=== PATIENT | male | born 1945 | race Caucasian/White ===

== ENCOUNTER 2020-02-21 08:14 | Emergency (ER) | payer OTHER ==
[~2020-02-21] VITALS: Ht 177.8 cm; Wt 84.0 kg
[2020-02-21] MEDS ORDERED: TETANUS,DIPTH,PERTUSS P/F (BOOSTRIX) 0.5 ML VIAL IM ONE (08:30)
--- NOTE | 2020-02-21 08:39 | ED Fall/Injury ---
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 He reports head and neck pain. C-collar placed on arrival to the ED. Source: patient Exam Limitations: no limitations History of Present Illness Date Seen by Provider: Feb 21, 2020 Time Seen by Provider: 08:32 Initial Comments 74-year-old male Trying to climb up a very high step into his semi missed it and fell backwards Hit the back of his head, was not knocked unconscious says he had a little bleeding from his head has head and neck pain also some left wrist pain and a scrape right elbow Location Injury Occurred: [facility] Allergies and Home Medications Allergies Coded Allergies: No Known Drug Allergies (Unverified , 02/21/20) Home Medications Hydrocodone/Acetaminophen 1 Each Tablet, 1 TAB PO Q4H Prescribed by: TYSON WILLIAMSON on 02/21/20 0943 Ibuprofen 800 Mg Tablet, 800 MG PO Q8H PRN for PAIN Prescribed by: TYSON WILLIAMSON on 02/21/20 0943 Patient Home Medication List Home Medication List Reviewed: Yes Review of Systems Review of Systems Constitutional: other (+ headache) Eyes: No Symptoms Reported Ears, Nose, Mouth, Throat: no symptoms reported Respiratory: no symptoms reported Cardiovascular: no symptoms reported; No chest pain, No palpitations, No syncope Gastrointestinal: no symptoms reported; No nausea, No vomiting Genitourinary: no symptoms reported Musculoskeletal: neck pain, other (left wrist pain scrape post right elbow) Past Liuqira-Idqxew-Rpdhsy Hx Patient Social History Alcohol Use: Occasionally Uses Recreational Drug Use: No Smoking Status: Never a Smoker 2nd Hand Smoke Exposure: No Recent Foreign Travel: No Contact w/Someone Who Travel: No Recent Infectious Disease Expo: No Recent Hopitalizations: No Physical Abuse: No Sexual Abuse: No Immunizations Up To Date Tetanus Booster (TDap): Unknown Seasonal Allergies Seasonal Allergies: No Past Medical History Surgeries: No Respiratory: No Cardiac: Yes High Cholesterol, Hypertension Neurological: No Genitourinary: No Gastrointestinal: No Musculoskeletal: No Endocrine: Yes Hypothyroidsim HEENT: No Cancer: No Psychosocial: No Integumentary: No Blood Disorders: No Physical Exam Vital Signs Vital Signs - First Documented 02/21/20 08:21 Temp 36.4 Pulse 71 Resp 16 B/P (MAP) 147/81 (103) Pulse Ox 94 O2 Delivery Room Air Capillary Refill : Less Than 3 Seconds Height, Weight, BMI Height: '" Weight: lbs. oz. 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, no motor/sensory deficits, alert, oriented x 3 Skin: warm/dry Progress/Results/Core Measures Results/Orders Lab Results Laboratory Tests Test 02/21/20 10:30 Range/Units White Blood Count 9.4 4.3-11.0 10^3/uL Red Blood Count 5.32 4.35-5.85 10^6/uL Hemoglobin 16.5 13.3-17.7 G/DL Hematocrit 49 40-54 % Mean Corpuscular Volume 91 80-99 FL Mean Corpuscular Hemoglobin 31 25-34 PG Mean Corpuscular Hemoglobin Concent 34 32-36 G/DL Red Cell Distribution Width 13.2 10.0-14.5 % Platelet Count 160 130-400 10^3/uL Mean Platelet Volume 12.1 H 7.4-10.4 FL Neutrophils (%) (Auto) 85 H 42-75 % Lymphocytes (%) (Auto) 8 L 12-44 % Monocytes (%) (Auto) 5 0-12 % Eosinophils (%) (Auto) 2 0-10 % Basophils (%) (Auto) 0 0-10 % Neutrophils # (Auto) 8.0 H 1.8-7.8 X 10^3 Lymphocytes # (Auto) 0.8 L 1.0-4.0 X 10^3 Monocytes # (Auto) 0.4 0.0-1.0 X 10^3 Eosinophils # (Auto) 0.2 0.0-0.3 10^3/uL Basophils # (Auto) 0.0 0.0-0.1 10^3/uL Neutrophils % (Manual) 79 % Lymphocytes % (Manual) 7 % Monocytes % (Manual) 5 % Eosinophils % (Manual) 2 % Basophils % (Manual) 1 % Band Neutrophils 6 % Blood Morphology Comment NORMAL Prothrombin Time 13.4 12.2-14.7 SEC INR Comment 1.0 0.8-1.4 Sodium Level 141 135-145 MMOL/L Potassium Level 3.9 3.6-5.0 MMOL/L Chloride Level 98 98-107 MMOL/L Carbon Dioxide Level 30 21-32 MMOL/L Anion Gap 13 5-14 MMOL/L Blood Urea Nitrogen 19 H 7-18 MG/DL Creatinine 1.11 0.60-1.30 MG/DL Estimat Glomerular Filtration Rate > 60 BUN/Creatinine Ratio 17 Glucose Level 137 H 70-105 MG/DL Calcium Level 9.8 8.5-10.1 MG/DL My Orders Orders - TYSON WILLIAMSON MD Wrist 3 View Left (02/21/20 08:30) Dipht,Pertuss(Acell),Tet Adult (Boostrix (02/21/20 08:30) Wound Dressing-Ed (02/21/20 08:41) Bacitracin Ointment (Bacitracin Ointment (02/21/20 09:00) Ct Head/Cervical Spine Wo (02/21/20 08:25) Hydrocodone/Apap 5/325 Tablet (Lortab 5 (02/21/20 09:15) Ibuprofen Tablet (Motrin Tablet) (02/21/20 09:15) Ketorolac Injection (Toradol Injection) (02/21/20 09:15) Lumbar Spine 2 Or 3 View (02/21/20 09:29) Ketorolac Injection (Toradol Injection) (02/21/20 09:26) Hydrocodone/Apap 5/325 Tablet (Lortab 5 (02/21/20 09:45) Basic Metabolic Panel (02/21/20 10:18) Cbc With Automated Diff (02/21/20 10:18) Protime With Inr (02/21/20 10:18) Sen Bandage (6/22/20 10:18) Manual Differential (02/21/20 10:30) Ct Angio Abdomen/Pelv W (02/21/20 11:10) Iohexol Injection (Omnipaque 350 Mg/Ml 1 (02/21/20 11:15) Received Contrast (Hold Metformin- Contr (02/21/20 11:15) Sodium Chloride Flush (Catheter Flush Sy (02/21/20 11:15) Ns (Ivpb) (Sodium Chloride 0.9% Ivpb Bag (02/21/20 11:15) Medications Given in ED Current Medications Medications Dose Ordered Sig/Risa Route Start Time Stop Time Status Last Admin Dose Admin Acetaminophen/ Hydrocodone Bitart 1 tab ONCE ONCE PO 02/21/20 09:45 02/21/20 09:46 DC 02/21/20 09:35 1 TAB Diphtheria/ Tetanus/Acell Pertussis 0.5 ml ONCE ONCE IM 02/21/20 08:30 02/21/20 08:32 DC 02/21/20 09:16 0.5 ML Iohexol 125 ml ONCE ONCE IV 02/21/20 11:15 02/21/20 11:16 DC 02/21/20 11:57 85 ML Ketorolac Tromethamine 60 mg ONCE ONCE IM 02/21/20 09:15 02/21/20 09:32 DC 02/21/20 09:32 60 MG Sodium Chloride 10 ml NEEDED PRN IV 02/21/20 11:15 02/21/20 11:57 10 ML Sodium Chloride 100 ml ONCE ONCE IV 02/21/20 11:15 02/21/20 11:16 DC 02/21/20 11:57 80 ML Vital Signs/I&O 02/21/20 08:21 Temp 36.4 Pulse 71 Resp 16 B/P (MAP) 147/81 (103) Pulse Ox 94 O2 Delivery Room Air Blood Pressure Mean: 103 Progress Progress Note : Progress Note CT head - no injury identified CT cervical spine - no fx or disloc some degen changes C collar removed has central post scalp tiny abrasion slight swelling no lac L wrist - normal no fx on return from x-ray pt c/o lower back pain none in mid or upper back is stiff with mild diffuse tenderness L spine x-ray added L spine - no acute bony injury degen changes but appears to have AAA (pt unaware) will CT CBC BMP INR all ess normal CT angio abd/pel - Departure Impression Primary Impression: Blunt head injury Qualified Codes: S09.8XXA - Other specified injuries of head, initial encounter Additional Impressions: Cervical strain Qualified Codes: S16.1XXA - Strain of muscle, fascia and tendon at neck level, initial encounter Wrist sprain Qualified Codes: S63.502A - Unspecified sprain of left wrist, initial encounter Lumbar strain Qualified Codes: S39.012A - Strain of muscle, fascia and tendon of lower [place], initial encounter Abrasion Aortic aneurysm Qualified Codes: I71.4 - Abdominal aortic aneurysm, without rupture Disposition: HOME, SELF-CARE Condition: Unchanged Departure-Patient Inst. Decision time for Depature: 12:17 Patient Instructions: Closed Head Injury, Cervical Muscle Strain (DC), Wrist Sprain (DC), Skin Abrasions (DC) Add. Discharge Instructions: we did not find any fractures or evidence of serious injury on CAT scans of the head and neck, x-rays of the left wrist and lower back While x-raying your back we noticed what appeared to be an aneurysm of the aorta CAT scan confirms the presence of an infrarenal 4.9 x 5.0 cm aortic aneurysm This is something you definitely need to follow up with your primary physician about and likely a referral to a vascular surgeon We don't feel this had anything to do with your fall today and we don't see a reason to think it constitutes any immediate threat but definitely needs follow- up Scripts Ibuprofen (Ibuprofen) 800 Mg Tablet 800 MG PO Q8H PRN for PAIN, #21 TAB 0 Refills Prov: TYSON WILLIAMSON MD 02/21/20 Hydrocodone/Acetaminophen ([place] 7.5-325 Tablet) 1 Each Tablet 1 TAB PO Q4H for PAIN-MODERATE MDD 6 TABS for 7 Days, #16 TAB Prov: TYSON WILLIAMSON MD 02/21/20 TYSON WILLIAMSON MD Feb 21, 2020 08:39
[2020-02-21] MEDS ORDERED: BACITRACIN OINTMENT 28 GM TUBE TOP SCH (09:00)
[2020-02-21] MEDS ORDERED: IBUPROFEN 800 MG (MOTRIN) TAB PO ONE (09:15)
[2020-02-21] MEDS ORDERED: HYDROcodone/APAP 5 MG/325 MG (LORTAB) TAB PO ONE ×2 (09:15→09:45)
[2020-02-21] MEDS ORDERED: KETOROLAC 60 MG/2 ML VIAL IM ONE (09:15)
--- NOTE | 2020-02-21 09:21 | Diagnostic Imaging Report ---
PROCEDURE: CT head and CT cervical spine without contrast. TECHNIQUE: Multiple contiguous axial images were obtained through the brain and cervical spine without the use of intravenous contrast. Sagittal and coronal reformations through the cervical spine were then performed. Auto Exposure Controls were utilized during the CT exam to meet ALARA standards for radiation dose reduction. INDICATION: Fall with head and neck injuries CT HEAD: Ventricles and sulci are within normal limits for patient age. No hemorrhage is identified. There is no abnormal mass effect or shift of midline structures. Calvarium is intact and the visualized paranasal sinuses are clear. IMPRESSION: No CT evidence of acute intracranial abnormality. CT CERVICAL SPINE: Cervical spinal curvature and alignment are unremarkable. Vertebral body heights and disc spaces are maintained. There is mild endplate spurring and degenerative facet arthropathy however no acute fracture is detected. There is no evidence of paraspinous hematoma. Note is made of carotid artery atherosclerosis and additional dystrophic calcination likely within lymph node in the left submandibular region. IMPRESSION: Mild degenerative findings without CT evidence of acute cervical spinal abnormality. Dictated by: Dictated on workstation # [id number]
--- NOTE | 2020-02-21 09:25 | Diagnostic Imaging Report ---
EXAMINATION: Left wrist, 3 views INDICATION: Traumatic left wrist pain. COMPARISON: None available. FINDINGS: There is mild osteopenia of the visualized bones, limiting detailed evaluation. No fracture or acute osseous abnormality is demonstrated. Well-corticated ossific density in the dorsal wrist likely reflects sequela of prior avulsion injury. Carpal configuration is normal. Degenerative changes noted involving the radiocarpal joint as well as the 1st carpometacarpal joint. Regional soft tissues are unremarkable. IMPRESSION: No acute fracture or dislocation. Chronic changes are detailed above. Dictated by: Dictated on workstation # [id number]
[2020-02-21] MEDS ORDERED: KETOROLAC 60 MG/2 ML VIAL ONE (09:26)
[2020-02-21] MEDS ORDERED: IBUP-1780 PO (09:43)
[2020-02-21] MEDS ORDERED: HYDR-4227 PO (09:43)
--- NOTE | 2020-02-21 10:21 | Diagnostic Imaging Report ---
Indication: Fall and back pain. Time of exam: 9:55 AM Frontal and lateral views lumbar spine were obtained. Curvature is normal. There is minimal anterolisthesis of L4 on L5. Vertebral body heights are normal. No acute compression fracture seen. There is generalized degenerative disc disease with very mild disc space narrowing and marginal osteophyte formation. The lateral view does suggest a distal abdominal aortic aneurysm measuring up to 5.67 m AP diameter. Impression: 1. Lumbar spondylosis and spondylolisthesis. No acute bony abnormality detected. 2. Abdominal aortic aneurysm measuring up to 5.67 m AP diameter. Dedicated CT abdomen and pelvis would be useful for better characterization. Dictated by: Dictated on workstation # [id number]
[2020-02-21 10:45] LABS: BASOPHILS % (AUTO) 0 % (0-10); EOSINOPHILS # (AUTO) 0.2 10^3/uL (0.0-0.3); EOSINOPHILS % (AUTO) 2 % (0-10); HEMATOCRIT 49 % (40-54); HEMOGLOBIN 16.5 G/DL (13.3-17.7); LYMPHOCYTES # (AUTO) 0.8 X 10^3 (1.0-4.0); LYMPHOCYTES % (AUTO) 8 % (12-44); MEAN CORPUSCULAR HEMOGLOBIN 31 PG (25-34); MEAN CORPUSCULAR HGB CONC 34 G/DL (32-36); MEAN CORPUSCULAR VOLUME 91 FL (80-99); MEAN PLATELET VOLUME 12.1 FL (7.4-10.4); MONOCYTES # (AUTO) 0.4 X 10^3 (0.0-1.0); MONOCYTES % (AUTO) 5 % (0-12); NEUTROPHILS % (AUTO) 85 % (42-75); PLATELET COUNT 160 10^3/uL (130-400); RED CELL DISTRIBUTION WIDTH 13.2 % (10.0-14.5); WHITE BLOOD COUNT 9.4 10^3/uL (4.3-11.0)
[2020-02-21 10:58] LABS: PROTHROMBIN TIME PATIENT 13.4 SEC (12.2-14.7)
[2020-02-21 11:03] LABS: BAND NEUTROPHILS 6 %; BASOPHILS % (MANUAL) 1 %; EOSINOPHILS % (MANUAL) 2 %; LYMPHOCYTES % (MANUAL) 7 %; MONOCYTES % (MANUAL) 5 %; NEUTROPHILS % (MANUAL) 79 %; RBC MORPH NORMAL
[2020-02-21 11:05] LABS: BUN/CREATININE RATIO 17; CALCIUM 9.8 MG/DL (8.5-10.1); CARBON DIOXIDE 30 MMOL/L (21-32); CHLORIDE 98 MMOL/L (98-107); CREATININE SERUM 1.11 MG/DL (0.60-1.30); GFR ESTIMATED > 60; GLUCOSE 137 MG/DL (70-105); POTASSIUM 3.9 MMOL/L (3.6-5.0); SODIUM 141 MMOL/L (135-145)
[2020-02-21] MEDS ORDERED: HOLD METFORMIN - RECEIVED CONTRAST 20 ML VIAL IV SCH (11:15)
[2020-02-21] MEDS ORDERED: NS 100 ML (IVPB) BAG IV ONE (11:15)
[2020-02-21] MEDS ORDERED: CATHETER FLUSH 10 ML SYR IV PRN (11:15)
[2020-02-21] MEDS ORDERED: IOHEXOL 350 MG/ML 150 ML (OMNIPAQUE 350) VIAL IV ONE (11:15)
--- NOTE | 2020-02-21 12:07 | Diagnostic Imaging Report ---
EXAMINATION: CT angiography of the abdomen and pelvis. TECHNIQUE: After intravenous administration of contrast, thin section axial CT angiography of the abdomen and pelvis were obtained. 3D MIP reformats were provided. All CT scans use one or more of the following dose optimizing techniques: automated exposure control, MA and/or KvP adjustment based on a patient size and exam type, or iterative reconstruction. HISTORY: Abdominal aortic aneurysm. COMPARISON: None available. FINDINGS: There is a 4.9 x 5.0 cm infrarenal abdominal aortic aneurysm with a small amount of mural thrombus but no CT evidence of impending rupture. Incidental note is made of a retroaortic left renal vein. Limited views of the lower thorax are unremarkable. The liver is normal without focal lesion. There is no biliary ductal dilation. Gallbladder is normal. Pancreas is normal. Spleen is normal. Adrenal glands are normal. The kidneys are normal. There is no hydronephrosis. Urinary bladder is normal. Visualized bowel is normal in caliber without obstruction or inflammation. No free fluid or air. No abdominal or pelvic lymphadenopathy. There are no suspicious osseus lesions. IMPRESSION: 1. 4.9 cm x 5.0 cm infrarenal abdominal aortic aneurysm without CT evidence of impending rupture. Dictated by: Dictated on workstation # [id number]
[2020-02-21 12:38] VITALS: BP 109/63
== END 2020-02-21 12:38 | disposition home or self-care (01) ==
LOC: ER FS 08:16
DX: S09.8XXA Other specified injuries of head, initial encounter (principal); S16.1XXA Strain of muscle, fascia and tendon at neck level, initial encounter; S63.502A Unspecified sprain of left wrist, initial encounter; S39.012A Strain of muscle, fascia and tendon of lower back, initial encounter; S50.311A Abrasion of right elbow, initial encounter; S00.01XA Abrasion of scalp, initial encounter; I71.4 Abdominal aortic aneurysm, without rupture; Z23 Encounter for immunization; V58.4XXA Person boarding or alighting a pick-up truck or van injured in noncollision transport accident, initial encounter
CPT/HCPCS: 36415; 70450; 72100; 72125; 73110; 74174; 80048; 85007; 85027; 85610; 90715